=== PATIENT | male | born 1955 | race Hispanic/Latino ===

== ENCOUNTER 2016-11-18 09:39 | Emergency (ER) | payer BC ==
[2016-11-18] MEDS ORDERED: Sodium Chloride 0.9% 1,000 ML ONE ×2 (10:02→11:08)
[2016-11-18] MEDS ORDERED: Acetaminophen 500 MG TAB ONE (10:06)
[2016-11-18 10:17] LABS: #Basophils 0.1 thou/uL (0.0-0.2); #Lymphocytes 0.7 thou/uL (1.20-3.40); #Monocytes 1.2 thou/uL (0.11-0.59); #Neutrophils 6.8 thou/uL (1.40-6.50); %Basophils 1.7 % (0.0-1.0); %Lymphocytes 8.1 % (21.0-51.0); %Monocytes 13.9 % (0.0-10.0); Hematocrit 52.8 % (42.0-52.0); Mean Platelet Volume 10.5 fL (7.4-10.4); Red Blood Cell (RBC) Count 5.83 mill/uL (4.70-6.10); White Blood Cell (WBC) Count 8.9 thou/uL (4.8-10.8)
--- NOTE | 2016-11-18 10:23 | RAD ---
PA AND LATERAL CHEST: History: Fever. FINDINGS: The heart size is normal. The lungs are expanded without focal areas of consolidation, pneumothorax , or pleural effusions. There are degenerative changes of the spine. IMPRESSION: No radiographic evidence of acute cardiopulmonary process. POS: [facility]
[2016-11-18 10:26] LABS: Lactic Acid - Sepsis 1.2 mmol/L (0.5-2.2)
[2016-11-18 10:31] LABS: ALT (SGPT) 64 U/L (0-55); AST (SGOT) 53 U/L (5-34); Alkaline Phosphatase 108 U/L (40-150); Anion Gap 17 mmol/L (10-20); BUN (Urea Nitrogen) 11 mg/dL (8.4-25.7); Bilirubin, Total 0.8 mg/dL (0.2-1.2); CK (CPK) 55 U/L (30-200); Calc. Creatinine Clearance 0 mL/min (70-130); Calcium 9.1 mg/dL (7.8-10.44); Carbon Dioxide 19 mmol/L (22-29); Chloride 105 mmol/L (98-107); Estimated GFR-MDRD 73; Globulin 3.5 g/dL (2.4-3.5); Protein, Total 7.8 g/dL (6.0-8.3)
--- NOTE | 2016-11-18 11:59 | ERRECORD ---
[facility] EMERGENCY RECORD HPI FLU-LIKE SYNDROME (10:05 JL) CHIEF COMPLAINT: Patient presents for evaluation of body aches, Patient presents for evaluation of fever, subjective, Patient presents for evaluation of upper respiratory infection, Patient presents for evaluation of Pt with 1 day of cough, congestion, and fever. Noted to have tahycardia in Dr. Fagan's office and sent for eval. Negative flu and urine in PCP's office. Took ibuprofen and paracetamol yesterday but none today. HISTORIAN: History provided by patient. LOCATION: Symptoms are generalized. QUALITY: Pain is dull in nature, described as aching. TIME COURSE: Gradual onset of symptoms, Symptoms are worsening, are constant. ASSOCIATED WITH: No associated abdominal pain, No associated chest pain, Associated with cough, productive, No associated diarrhea, No associated flank pain, Associated with headache, intermittent, No associated vomiting, No associated shortness of breath, No associated urinary tract infection signs or symptoms. EXACERBATED BY: Patient's condition exacerbated by nothing. RELIEVED BY: Patient's condition relieved by over the counter medications. ROS (10:06 JL) CONSTITUTIONAL: Historian reports chills, reports fever. EYES: Historian denies eye pain, denies eye redness, denies eye discharge. ENT: Historian reports rhinorrhea, denies sore throat. CARDIOVASCULAR: Historian denies chest pain, denies dyspnea on exertion. RESPIRATORY: Historian reports cough, denies shortness of breath, reports sputum. clear. GI: Historian denies abdominal pain, denies diarrhea, denies nausea, denies vomiting. GENITOURINARY MALE: Historian denies dysuria, denies hematuria. MUSCULOSKELETAL: Historian reports arthralgias, reports myalgias. SKIN: Historian denies rash, denies skin changes. NEUROLOGIC: Historian reports headache. PAST MEDICAL HISTORY MEDICAL HISTORY: Past medical history includes history of diabetes, Type II, Past medical history includes history of hypertension, which has been treated, Patient is compliant. (09:51 [facility]) MALE SURGICAL HISTORY: COLONOSCOPY. (10:15 [facility]) PSYCHIATRIC HISTORY: No previous psychiatric history. (10:11 [facility]) SOCIAL HISTORY: Patient drinks socially, Patient denies drug use, Patient has no smoking history. (10:15 [facility]) &a-1R&a+25V*p+0X*[id number]*c202B*c15G*c2P*p-0X&a-25V&a+1R Name: Chester Dempsey : 1955 M61 MedRec: [id number] AcctNum: [id number] Prepared: Shahnaz Nov 18, 2016 12:22 by Interface Page 1 of 4 pMD [facility] EMERGENCY RECORD NOTES: Nursing records reviewed, Agree with nursing records. (10:08 [facility]) KNOWN ALLERGIES No Known Drug Allergies CURRENT MEDICATIONS enalapril maleate: TABLET : Strength - 10 mg : ORAL Patient Dose: 10 mg Oral once a day. (09:49 [facility]) aspirin: TABLET : Strength - 81 mg : ORAL Patient Dose: 81 mg Oral once a day. (:49 [facility]) Paracetamol: TABLET : Strength - 500 mg : ORAL Patient Dose: 2 tab(s) Oral every 4 hours prn. (:49 [facility]) Vitamin D3: CAPSULE : Strength - 1,000 unit : ORAL Patient Dose: ONE cap(s) Oral once a day. (10:17 [facility]) metFORMIN: TABLET : Strength - 850 mg : ORAL Patient Dose: 850 mg Oral once a day. (10:17 [facility]) VITAL SIGNS VITAL SIGNS: BP: 149/99 (Lying), Pulse: 137 (Regular), Resp: 16 (Non-Labored), Temp: 100.6 (Oral), Pain: 0, Time: 11/18/2016 09:41. (09:41 [facility]) O2 sat: 97 on Room Air, Time: 11/18/2016 09:41. (09:41 [facility]) BP: 128/87 (Lying), Pulse: 121 (Regular), Resp: 16 (Non-Labored), Pain: 0, O2 sat: 97 on Room Air, Time: 11/18/2016 10:18. (10:18 [facility]) BP: 115/83 (Lying), Pulse: 112 (Regular), Resp: 16 (Non-Labored), Pain: 0, O2 sat: 97 on Room Air, Time: 11/18/2016 10:35. (10:35 [facility]) BP: 107/78 (Lying), Pulse: 107 (Regular), Resp: 20 (Non-Labored), Pain: 0, O2 sat: 96 on Room Air, Time: 11/18/2016 11:11. (11:11 [facility]) BP: 106/72 (Lying), Pulse: 104 (Regular), Resp: 18 (Non-Labored), Pain: 0, O2 sat: 97 on Room Air, Time: 11/18/2016 11:33. (11:33 [facility]) BP: 117/80, Pulse: 103, Resp: 18, Temp: 98.8, Pain: 0, O2 sat: 97 on RA, Time: 11/18/2016 12:08. (12:08 [facility]) PHYSICAL EXAM (10:07 [facility]) CONSTITUTIONAL: Vital signs reviewed, Patient appears non toxic, Patient alert and oriented to person, place and time. EYES: Eye exam included findings of eyelids normal to inspection, Pupils equally round and reactive to light, Conjunctiva normal. ENT: Pharynx exam normal, Uvula exam normal, Tonsil exam normal, Mouth exam included findings of, mucous membranes dry. NECK: Neck exam included findings of normal range of motion, Trachea midline, no cervical adenopathy. RESPIRATORY CHEST: Respiratory exam included findings of no respiratory distress, Breath sounds clear, No wheezing, No rales, No &a-1R&a+25V*p+0X*[id number]*c202B*c15G*c2P*p-0X&a-25V&a+1R Name: Chester Dempsey : 1955 M61 MedRec: [id number] AcctNum: [id number] Prepared: [facility] Nov 18, 2016 12:22 by Interface Page 2 of 4 pMD [facility] EMERGENCY RECORD rhonchi, Chest exam included findings of chest movement symmetrical. CARDIOVASCULAR: Cardiovascular exam included findings of, rate tachycardic, rhythm regular, Heart sounds normal. ABDOMEN MALE: Abdominal exam included findings of abdomen nontender, Bowel sounds normal. BACK: Back exam included findings of normal inspection, range of motion normal. UPPER EXTREMITY: Upper extremity exam included findings of inspection normal, Radial pulse normal, no cyanosis, no clubbing, no edema. LOWER EXTREMITY: Lower extremity exam included findings of inspection normal, no edema, no calf tenderness. NEURO: Preble coma scale 15, Neuro exam findings include patient oriented to person, place and time, Speech normal. SKIN: Skin exam included findings of skin warm, dry, and normal in color, no rash. PSYCHIATRIC: Normal affect. MEDICATION ADMINISTRATION SUMMARY Drug Name: *sodium chloride 0.9 % intravenous, Dose Ordered: 1 L, Route: IV Fluid Infusion, Status: Given, Time: 11:11/18/2016, Drug Name: acetaminophen oral, Dose Ordered: 1000 mg, Route: Oral, Status: Given, Time: 10:11/18/2016, Drug Name: *sodium chloride 0.9 % intravenous, Dose Ordered: 1 L, Route: IV Fluid Infusion, Status: Given, Time: 10:11/18/2016, *Additional information available in notes, Detailed record available in Medication Service section. DOCTOR NOTES (11:01 JLOY) RE-EVALUATION: The patient's condition has improved, HR improved but still mild tachycardia. Mucus membranes still dry appearing. Will give another liter of fluid. PROBLEM LIST No recorded problems DIAGNOSIS (11:54 JLOY) FINAL: PRIMARY: DEHYDRATION, ADDITIONAL: Acute URI. PRESCRIPTION No recorded prescriptions DISPOSITION PATIENT: Disposition Type: Discharge, Disposition: *Discharge Home. (11:54 JL) Patient left the department. (12:16 [facility]) Lou: &a-1R&a+25V*p+0X*[id number]*c202B*c15G*c2P*p-0X&a-25V&a+1R Name: Chester Dempsey : 1955 M61 MedRec: [id number] AcctNum: [id number] Prepared: TueNov 18, 2016 12:22 by Interface Page 3 of 4 pMD [facility] EMERGENCY RECORD JLOY=MD Delgado, John AL=CARLIE Gupta, Karen &a-1R&a+25V*p+0X*f9375S*c202B*c15G*c2P*p-0X&a-25V&a+1R Name: Chester Dempsey : 1955 M61 MedRec: [id number] AcctNum: [id number] Prepared: TueNov 18, 2016 12:22 by Interface Page 4 of 4 pMD [facility]D
--- NOTE | 2016-11-18 12:02 | PICIS ---
[facility] EMERGENCY RECORD TRIAGE (TueNov 18, 2016 09:46 LHAL) PATIENT: NAME: Chester Dempsey, AGE: 61, GENDER: male, : Tue1955, TIME OF GREET: TueNov 18, 2016 09:39, PREFERRED LANGUAGE: Cuban, RACE: or , ETHNICITY: or , ECODE BILLING MAP: [facility], SSN: [id number], Zip Code: [address], KG WEIGHT: 72.57, PHONE: , , , PERSON ID: [id number], PCP: DOMINIC. (TueNov 18, 2016 09:46 LHAL) COMPLAINT: FEVER. (TueNov 18, 2016 09:46 LHAL) ADMISSION: URGENCY: 4 Non Urgent, ADMISSION SOURCE: Other, TRANSPORT: CAR, BED: ER -03. (TueNov 18, 2016 09:46 LHAL) ASSESSMENT: Assessment: COUGH, CONGESTION, FEVER X FEW DAYS, SENT FROM PCP OFFICE FOR TACHYCARDIA, Symptoms began 3 DAYS AGO. (10:11 LHAL) PAIN: No complaint of pain. (09:46 LHAL) SIRS SCORING: Heart Rate 110-139 (2), Temp range 96.8-101.1 (0), respiratory rate 12-24 (0), Mental Status altered: no (0), Yes, Infection or Suspected Infection. (09:46 LHAL) IMMUNIZATIONS: Flu vaccine not up to date, Tetanus not up to date, Pneumococcal vaccine up to date. (10:20 LHAL) TRIAGE SCREENING: Patient denies suicidal ideation, Patient denies presence of domestic violence. (09:46 LHAL) PROVIDERS: TRIAGE NURSE: Karen Gupta RN, ATTENDING PHYSICIAN: John Natarajan MD. (TueNov 18, 2016 09:46 LHAL) VITAL SIGNS: BP 149/99, (Lying), Pulse 137, (Regular), Resp 16, (Non-Labored), Temp 100.6, (Oral), Pain 0, Time 11/18/2016 09:41. (09:41 LHAL) PREVIOUS VISIT ALLERGIES: No Known Drug Allergies. (TueNov 18, 2016 09:46 LHAL) KNOWN ALLERGIES No Known Drug Allergies CURRENT MEDICATIONS enalapril maleate: TABLET : Strength - 10 mg : ORAL Patient Dose: 10 mg Oral once a day. (09:49 LHAL) aspirin: TABLET : Strength - 81 mg : ORAL Patient Dose: 81 mg Oral once a day. (09:49 LHAL) Paracetamol: TABLET : Strength - 500 mg : ORAL Patient Dose: 2 tab(s) Oral every 4 hours prn. (09:49 LHAL) Vitamin D3: CAPSULE : Strength - 1,000 unit : ORAL Patient Dose: ONE cap(s) Oral once a day. (10:17 LHAL) metFORMIN: TABLET : Strength - 850 mg : ORAL Patient Dose: 850 mg Oral once a day. (10:17 LHAL) &a-1R&a+25V*p+0X*m3996Q*c202B*c15G*c2P*p-0X&a-25V&a+1R Name: Chester Dempsey : 1955 M61 MedRec: [id number] AcctNum: [id number] Prepared: TueNov 18, 2016 12:28 by Interface Page 1 of 9 pMD [facility] EMERGENCY RECORD VITAL SIGNS VITAL SIGNS: BP: 149/99 (Lying), Pulse: 137 (Regular), Resp: 16 (Non-Labored), Temp: 100.6 (Oral), Pain: 0, Time: 11/18/2016 09:41. (09:41 LHAL) O2 sat: 97 on Room Air, Time: 11/18/2016 09:41. (09:41 LHAL) BP: 128/87 (Lying), Pulse: 121 (Regular), Resp: 16 (Non-Labored), Pain: 0, O2 sat: 97 on Room Air, Time: 11/18/2016 10:18. (10:18 LHAL) BP: 115/83 (Lying), Pulse: 112 (Regular), Resp: 16 (Non-Labored), Pain: 0, O2 sat: 97 on Room Air, Time: 11/18/2016 10:35. (10:35 LHAL) BP: 107/78 (Lying), Pulse: 107 (Regular), Resp: 20 (Non-Labored), Pain: 0, O2 sat: 96 on Room Air, Time: 11/18/2016 11:11. (11:11 LHAL) BP: 106/72 (Lying), Pulse: 104 (Regular), Resp: 18 (Non-Labored), Pain: 0, O2 sat: 97 on Room Air, Time: 11/18/2016 11:33. (11:33 LHAL) BP: 117/80, Pulse: 103, Resp: 18, Temp: 98.8, Pain: 0, O2 sat: 97 on RA, Time: 11/18/2016 12:08. (12:08 LHAL) NURSING ASSESSMENT: CARDIOVASCULAR (09:46 [facility]) CARDIOVASCULAR: Cardiovascular assessment findings include heart rate normal, Heart rhythm normal sinus, Heart sounds normal, Left radial pulse +3(easily palpated, considered normal), Right radial pulse +3(easily palpated, considered normal), Left dorsalis pedis pulse +3(easily palpated, considered normal), Right dorsalis pedis pulse +3(easily palpated, considered normal). NURSING ASSESSMENT: FOCUSED (09:46 [facility]) CONSTITUTIONAL: Patient arrives ambulatory, Gait steady, History obtained from patient, Patient appears comfortable, Patient cooperative, Patient alert, Oriented to person, place and time, Skin warm, Skin dry, Skin normal in color, Mucous membranes pink, Mucous membranes moist, Patient is well-groomed, Patient complains of COUGH, CONGESTION, FEVER X 3 DAYS, SENT HERE FOR TACHYCARDIA FROM PCP OFFICE. PAIN: intermittent, Patient rates pain as 0 out of 10, HAD BODY ACHES THIS AM, NO PAIN NOW TOOK TYLENOL LAST PM, NOTHING TODAY. EYES: Focused eye assessment finding include pupils equally round and reactive to light, Left pupil 3 mm in size, Right pupil 3 mm in size. NEURO: Focused neuro assessment findings include patient alert, cooperative, No facial droop noted, Speech coherent, no weakness, no numbness, No loss of consciousness, Notes: C/O GENERALIZED MALAISE, FATIGUE. GCS: GCS Total: 15. RESPIRATORY: Focused respiratory assessment findings include breath sounds clear, to the left upper lobe, to the right upper lobe, to bilateral upper lobes, to the right middle lobe, to the left lower lobe, to the right lower lobe, to bilateral lower lobes. ABDOMEN: Focused abdominal assessment findings include abdomen soft, no diarrhea, no complaint of nausea, no vomiting, Bowel sounds present, Notes: STATES HASN'T BEEN DRINKING FLUIDS, DRY &a-1R&a+25V*p+0X*t5309G*c202B*c15G*c2P*p-0X&a-25V&a+1R Name: Chester Dempsey : 1955 M61 MedRec: [id number] AcctNum: [id number] Prepared: Shahnaz Nov 18, 2016 12:28 by Interface Page 2 of 9 pMD [facility] EMERGENCY RECORD MMM. GENITOURINARY: Focused genitourinary assessment not applicable. MUSCULOSKELETAL: Focused musculoskeletal assessment findings include normal range of motion. LACERATION: Focused laceration assessment not applicable. SAFETY: Side rails up, Cart/Stretcher in lowest position, Call light within reach, Hospital ID band on. NURSING PROCEDURE: SUPERVISOR [employer]DNANCE TRUCK INSTALLATION (10:15 LHAL) PATIENT IDENTIFIER: Patient actively involved in identification process, Patient's identity verified by patient stating name, Patient's identity verified by patient stating date, Patient's identity verified by hospital ID bracelet. SUPERVISOR [employer]DNANCE TRUCK INSTALLATION: Cardiac monitoring indicated for TACHYCARDIA, Patient placed on registered nurse cardiac telemetry, Heart rate: 121, showing sinus tachycardia, without ectopy, with no ST segment changes, Strip posted on chart, Patient placed on non-invasive blood pressure monitor, with disposable blood pressure cuff applied, Patient placed on continuous pulse oximetry, Adult/pediatric oxisensor applied, Oxygen saturation 97%. FOLLOW-UP: After procedure, alarms set and on, After procedure, patient tolerating monitoring. SAFETY: Side rails up, Cart/Stretcher in lowest position, Call light within reach, Hospital ID band on. NURSING PROCEDURE: DISCHARGE NOTE (12:08 LHAL) DISCHARGE: Patient discharged to home, ambulating without assistance, driving self, unaccompanied, Summary of Care printed/ provided, Patient requested and was provided an electronic copy of Discharge Instructions, Transition record given to patient, Discharge instructions given to patient, Simple or moderate discharge teaching performed, by Chris GUPTA RN, Medication reconciliation form given, and reviewed with patient, Above person(s) verbalized understanding of discharge instructions and follow-up care, Notes: DC HOME STABLE, VSS, SKIN PINK W/D, NORMAL EVEN RESP, AMBULATES STEADY GAIT, NO COMPLAINTS, NO SYMPTOMS. BELONGINGS: Belongings and valuables with patient upon arrival to the Emergency Department include:. VITAL SIGNS: BP: 117, / 80, Pulse: 103, Resp: 18, Temp: 98.8, Pain: 0, O2 sat: 97, on: RA. NURSING PROCEDURE: IV PATIENT IDENITIFIER: Patient actively involved in identification process, Patient's identity verified by patient stating name, Patient's identity verified by patient stating date, Patient's identity verified by hospital ID bracelet. (10:00 LHAL) IV SITE 1: IV therapy indicated for hydration, IV established, to the left antecubital, using a 20 gauge catheter, in one attempt, IV site prepped with CHLOROPREP, Saline lock established, Flushed with normal saline (mls): 10 CC, Labs drawn at time of placement, labeled &a-1R&a+25V*p+0X*i2069T*c202B*c15G*c2P*p-0X&a-25V&a+1R Name: DempseyChester eddy Cecy : 1955 M61 MedRec: [id number] AcctNum: [id number] Prepared: TueNov 18, 2016 12:28 by Interface Page 3 of 9 D [facility] EMERGENCY RECORD in the presence of the patient and sent to lab, Blood cultures drawn at time of placement, labeled in the presence of the patient and sent to lab, Notes: 1ST SET BC DONE THRU IV SITE. (10:00 LHAL) FOLLOW-UP SITE 1: IV discontinued, due to patient being discharged, catheter intact. (12:08 LHAL) SAFETY: Side rails up, Cart/Stretcher in lowest position, Call light within reach, Hospital ID band on. (10:00 LHAL) NURSING PROCEDURE: LAB DRAW (10:00 LHAL) PATIENT IDENTIFIER: Patient actively involved in identification process, Patient's identity verified by patient stating name, Patient's identity verified by patient stating date, Patient's identity verified by hospital ID bracelet. LAB DRAW: Lab draw indicated for obtaining specimens for evaluation, by venipuncture, Notes: SECOND BLOOD CULTURE DRAWN, RIGHT WRIST. FOLLOW-UP: After procedure, dressing applied to site, After procedure, no swelling at site, After procedure, no active bleeding from site. SAFETY: Side rails up, Cart/Stretcher in lowest position, Call light within reach, Hospital ID band on. NURSING PROCEDURE: NURSE NOTES NURSES NOTES: Patient examined by physician. (09:52 LHAL) Patient in no apparent distress, Patient resting quietly, Patient is awaiting results. (10:28 LHAL) Patient is improving, Patient in no apparent distress. (11:21 LHAL) NURSING PROCEDURE: TRANSPORT TO TESTS PATIENT IDENTIFIER: Patient actively involved in identification process, Patient's identity verified by patient stating name, Patient's identity verified by patient stating date, Patient's identity verified by hospital ID bracelet. (10:10 LHAL) TRANSPORT TO TESTS: Transport indicated to facilitate diagnosis, Patient transported to x-ray, ambulatory, Accompanied by x-ray biofuels processing technician. (10:10 LHAL) Patient transported to x-ray, via wheelchair, Accompanied by x-ray biofuels processing technician, Patient arrived in location at 10:02, Patient departed location at 10:12. (10:07 [facility]) FOLLOW-UP: After procedure, patient returned to emergency department. (10:15 LHAL) ORDER DETAILS Order Name: SUPERVISOR [employer]NCE TRUCK INSTALLATION ED, Status: Done, Time: 10:08 11/18/2016, User: JUAN, - Ordered for: MD Natarajan Joshua, - Entered by: MD Natarajan Joshua - [facility] Nov 18, 2016 10:02, - Quantity: 1, Order Name: CBC with Differential, Status: Active, Time: 10:02 &a-1R&a+25V*p+0X*j2994F*c202B*c15G*c2P*p-0X&a-25V&a+1R Name: Chester Dempsey : 1955 M61 MedRec: [id number] AcctNum: [id number] Prepared: TueNov 18, 2016 12:28 by Interface Page 4 of 9 [facility] EMERGENCY RECORD 11/18/2016, User: SARAH, - Ordered for: MD Natarajan Joshua, - Entered by: MD Natarajan Joshua - [facility] Nov 18, 2016 10:02, - Quantity: 1, Order Name: CK (CPK), Status: Active, Time: 10:02 11/18/2016, User: MILANA, - Ordered for: MD Natarajan Joshua, - Entered by: MD Natarajan Joshua - [facility] Nov 18, 2016 10:02, - Quantity: 1, Order Name: Comprehensive Metabolic Panel, Status: Active, Time: 10:02 11/18/2016, User: MILANA, - Ordered for: MD Natarajan Joshua, - Entered by: MD Natarajan Joshua - [facility] Nov 18, 2016 10:02, - Quantity: 1, Order Name: Culture, Blood, Status: Active, Time: 10:02 11/18/2016, User: MILANA, - Ordered for: MD Natarajan Joshua, - Entered by: MD Natarajan Joshua - [facility] Nov 18, 2016 10:02, - Quantity: 1, Order Name: EKG 12 Lead in Emergency Room, Status: Active, Time: 09:51 11/18/2016, User: JUAN, - Ordered for: MD Natarajan Joshua, - Entered by: CARLIE Gupta Akren TueNov 18, 2016 09:51, - Quantity: 1, Order Name: Lactic Acid with repeat, Status: Active, Time: 10:02 11/18/2016, User: MILANA, - Ordered for: MD Natarajan Joshua, - Entered by: MD Natarajan Joshua [facility] Nov 18, 2016 10:02, - Quantity: 1, Order Name: SALINE LOCK, Status: Done, Time: 10:08 11/18/2016, User: JUAN, - Ordered for: MD Natarajan Joshua, - Entered by: MD Natarajan Joshua [facility] Nov 18, 2016 10:02, - Quantity: 1, Order Name: XR Chest 1 View Portable, Status: Canceled, Time: 10:15 11/18/2016, User: System, - Ordered for: MD Natarajan Joshua, - Entered by: MD Natarajan Joshua [facility] Nov 18, 2016 10:02, - Quantity: 1. MEDICATION ADMINISTRATION SUMMARY Drug Name: *sodium chloride 0.9 % intravenous, Dose Ordered: 1 L, Route: IV Fluid Infusion, Status: Given, Time: 11:03 11/18/2016, Drug Name: acetaminophen oral, Dose Ordered: 1000 mg, Route: Oral, Status: Given, Time: 10:09 11/18/2016, Drug Name: *sodium chloride 0.9 % intravenous, Dose Ordered: 1 L, Route: IV Fluid Infusion, Status: Given, Time: 10:03 11/18/2016, *Additional information available in notes, Detailed record available in Medication Service section. &a-1R&a+25V*p+0X*e6687X*c202B*c15G*c2P*p-0X&a-25V&a+1R Name: Chester Dempsey : 1955 M61 MedRec: [id number] AcctNum: [id number] Prepared: Shahnaz Nov 18, 2016 12:28 by Interface Page 5 of 9 D [facility] EMERGENCY RECORD MEDICATION SERVICE acetaminophen oral: Order: acetaminophen oral (acetaminophen) - Dose: 1000 mg : Oral Ordered by: John Natarajan MD Entered by: John Natarajan MD [facility] Nov 18, 2016 10:04 , Acknowledged by: Leonora Mix RN [facility] Nov 18, 2016 10:05 Documented as given by: Leonora Mix RN [facility] Nov 18, 2016 10:09 Patient, Medication, Dose, Route and Time verified prior to administration. Site: Medication administered P.O., Correct patient, time, route, dose and medication confirmed prior to administration, Patient advised of actions and side-effects prior to administration, Allergies confirmed and medications reviewed prior to administration. : Follow Up : No signs or symptoms of allergic reaction noted, Decreased symptoms, Decreased temperature. (12:08 LHAL) sodium chloride 0.9 % intravenous: Order: sodium chloride 0.9 % intravenous (0.9 % sodium chloride) - Dose: 1 L : IV Fluid Infusion Notes: (Bolus) Ordered by: John Natarajan MD Entered by: John Natarajan MD [facility] Nov 18, 2016 10:02 Documented as given by: Karen Gupta RN [facility] Nov 18, 2016 10:03 Patient, Medication, Dose, Route and Time verified prior to administration. Amount given: 1000 CC, IV SITE #1 IV fluids established for hydration, IV SITE #1 into left antecubital, IV SITE #1 1st bag hung, amount 1 Liter hung, IV SITE #1 bolus of 1000 ml established, via primary tubing, Catheter placement confirmed via flush prior to administration, IV site without signs or symptoms of infiltration during medication administration, No swelling during administration, No drainage during administration, IV flushed after administration, Correct patient, time, route, dose and medication confirmed prior to administration, Patient advised of actions and side-effects prior to administration, Allergies confirmed and medications reviewed prior to administration, Administered by Chris GUPTA RN, Patient in position of comfort, Side rails up, Cart in lowest position. : Follow Up : No signs or symptoms of allergic reaction noted, Decreased symptoms, Decreased heart rate, _IV SITE #1:_, IV fluid infusion discontinued, on Shahnaz Nov 18, 2016 11:00, ., Total amount infused: 1000 CC, IV Line flushed after administration. (11:00 LHAL) sodium chloride 0.9 % intravenous: Order: sodium chloride 0.9 % intravenous (0.9 % sodium chloride) - Dose: 1 L : IV Fluid Infusion Notes: (Bolus) Ordered by: John Natarajan MD Entered by: John Natarajan MD [facility] Nov 18, 2016 11:01 Documented as given by: Karen Gupta RN [facility] Nov 18, 2016 11:03 &a-1R&a+25V*p+0X*x0223K*c202B*c15G*c2P*p-0X&a-25V&a+1R Name: Chester Dempsey : 1955 M61 MedRec: [id number] AcctNum: [id number] Prepared: TueNov 18, 2016 12:28 by Interface Page 6 of 9 pMD [facility] EMERGENCY RECORD Patient, Medication, Dose, Route and Time verified prior to administration. Amount given: 1000 CC, IV SITE #1 IV fluids established for hydration, IV SITE #1 into left antecubital, IV SITE #1 2nd bag hung, amount 1 Liter hung, IV SITE #1 bolus of 1000 ml established, via primary tubing, Catheter placement confirmed via flush prior to administration, IV site without signs or symptoms of infiltration during medication administration, No swelling during administration, No drainage during administration, IV flushed after administration, Correct patient, time, route, dose and medication confirmed prior to administration, Patient advised of actions and side-effects prior to administration, Allergies confirmed and medications reviewed prior to administration, Administered by Chris GUPTA RN, Patient in position of comfort, Side rails up, Cart in lowest position. : Follow Up : No signs or symptoms of allergic reaction noted, Decreased symptoms, Decreased heart rate, _IV SITE #1:_, IV fluid infusion discontinued, on TueNov 18, 2016 12:00, ., Total amount infused: 1000 CC, IV Discontinued with catheter intact. (12:00 [facility]) HPI FLU-LIKE SYNDROME (10:05 [facility]) CHIEF COMPLAINT: Patient presents for evaluation of body aches, Patient presents for evaluation of fever, subjective, Patient presents for evaluation of upper respiratory infection, Patient presents for evaluation of Pt with 1 day of cough, congestion, and fever. Noted to have tahycardia in Dr. Fagan's office and sent for eval. Negative flu and urine in PCP's office. Took ibuprofen and paracetamol yesterday but none today. HISTORIAN: History provided by patient. LOCATION: Symptoms are generalized. QUALITY: Pain is dull in nature, described as aching. TIME COURSE: Gradual onset of symptoms, Symptoms are worsening, are constant. ASSOCIATED WITH: No associated abdominal pain, No associated chest pain, Associated with cough, productive, No associated diarrhea, No associated flank pain, Associated with headache, intermittent, No associated vomiting, No associated shortness of breath, No associated urinary tract infection signs or symptoms. EXACERBATED BY: Patient's condition exacerbated by nothing. RELIEVED BY: Patient's condition relieved by over the counter medications. ROS (10:06 [facility]) CONSTITUTIONAL: Historian reports chills, reports fever. EYES: Historian denies eye pain, denies eye redness, denies eye discharge. ENT: Historian reports rhinorrhea, denies sore throat. CARDIOVASCULAR: Historian denies chest pain, denies dyspnea on exertion. &a-1R&a+25V*p+0X*h0915I*c202B*c15G*c2P*p-0X&a-25V&a+1R Name: Chester Dempsey : 1955 M61 MedRec: [id number] AcctNum: [id number] Prepared: TueNov 18, 2016 12:28 by Interface Page 7 of 9 pMD [facility] EMERGENCY RECORD RESPIRATORY: Historian reports cough, denies shortness of breath, reports sputum. clear. GI: Historian denies abdominal pain, denies diarrhea, denies nausea, denies vomiting. GENITOURINARY MALE: Historian denies dysuria, denies hematuria. MUSCULOSKELETAL: Historian reports arthralgias, reports myalgias. SKIN: Historian denies rash, denies skin changes. NEUROLOGIC: Historian reports headache. PAST MEDICAL HISTORY MEDICAL HISTORY: Past medical history includes history of diabetes, Type II, Past medical history includes history of hypertension, which has been treated, Patient is compliant. (09:51 LHAL) MALE SURGICAL HISTORY: COLONOSCOPY. (10:15 L[facility]) PSYCHIATRIC HISTORY: No previous psychiatric history. (10:11 L[facility]) SOCIAL HISTORY: Patient drinks socially, Patient denies drug use, Patient has no smoking history. (10:15 L[facility]) NOTES: Nursing records reviewed, Agree with nursing records. (10:08 [facility]) PHYSICAL EXAM (10:07 [facility]) CONSTITUTIONAL: Vital signs reviewed, Patient appears non toxic, Patient alert and oriented to person, place and time. EYES: Eye exam included findings of eyelids normal to inspection, Pupils equally round and reactive to light, Conjunctiva normal. ENT: Pharynx exam normal, Uvula exam normal, Tonsil exam normal, Mouth exam included findings of, mucous membranes dry. NECK: Neck exam included findings of normal range of motion, Trachea midline, no cervical adenopathy. RESPIRATORY CHEST: Respiratory exam included findings of no respiratory distress, Breath sounds clear, No wheezing, No rales, No rhonchi, Chest exam included findings of chest movement symmetrical. CARDIOVASCULAR: Cardiovascular exam included findings of, rate tachycardic, rhythm regular, Heart sounds normal. ABDOMEN MALE: Abdominal exam included findings of abdomen nontender, Bowel sounds normal. BACK: Back exam included findings of normal inspection, range of motion normal. UPPER EXTREMITY: Upper extremity exam included findings of inspection normal, Radial pulse normal, no cyanosis, no clubbing, no edema. LOWER EXTREMITY: Lower extremity exam included findings of inspection normal, no edema, no calf tenderness. NEURO: [place] coma scale 15, Neuro exam findings include patient oriented to person, place and time, Speech normal. SKIN: Skin exam included findings of skin warm, dry, and normal &a-1R&a+25V*p+0X*v5848U*c202B*c15G*c2P*p-0X&a-25V&a+1R Name: Chester Dempsey : 1955 M61 MedRec: [id number] AcctNum: [id number] Prepared: TueNov 18, 2016 12:28 by Interface Page 8 of 9 pMD [facility] EMERGENCY RECORD in color, no rash. PSYCHIATRIC: Normal affect. EVENTS TRANSFER: Triage to Emergency Emergency Room -03. (TueNov 18, 2016 09:46 LHAL) Removed from Emergency Emergency Room -03. (12:16 [facility]) DOCTOR NOTES (11:01 JL) RE-EVALUATION: The patient's condition has improved, HR improved but still mild tachycardia. Mucus membranes still dry appearing. Will give another liter of fluid. PROBLEM LIST No recorded problems DIAGNOSIS (11:54 JLOY) FINAL: PRIMARY: DEHYDRATION, ADDITIONAL: Acute URI. DISPOSITION PATIENT: Disposition Type: Discharge, Disposition: *Discharge Home. (11:54 JLOY) Patient left the department. (12:16 AL) INSTRUCTION (11:55 JLOY) DISCHARGE: URI, VIRAL, NO ABX (ADULT), DEHYDRATION (8Y-ADULT). FOLLOWUP: Follow up with Primary Care Physician in 5 days. SPECIAL: If you start to feel worse with increasing fevers or dizziness or trouble breathing return to the ER or see Dr. Fagan. PRESCRIPTION No recorded prescriptions IMAGING *DISCHARGE INSTRUCTIONS RECEIPT: Image captured from scanner. (12:09 AL) *SUPPLY CHARGE SHEET: Image captured from scanner. (12:10 AL) MONITOR STRIPS: Image captured from scanner. (12:10 [facility]) Page 2 added. Image captured from scanner. (12:10 [facility]) Image captured from scanner. (12:10 AL) *EKG: Image captured from scanner. (12:11 AL) ADMIN DIGITAL SIGNATURE: MD Natarajan Joshua. (11:55 MILANA) CARLIE Gupta, Karen. (12:16 BEA) Lou: CCRI=ANAID [place] JLOY=MD Natarajan Joshua LHAL=CARLIE Gupta Linda &a-1R&a+25V*p+0X*s6579H*c202B*c15G*c2P*p-0X&a-25V&a+1R Name: Dempsey , Chester Sam : 1955 M61 MedRec: [id number] AcctNum: [id number] Prepared: TueNov 18, 2016 12:28 by Interface Page 9 of 9 pMD [facility] MEDICATION RECONCILIATION You were seen in the Emergency Department on: TueNov 18, 2016 KNOWN ALLERGIES No Known Drug Allergies MEDICATIONS GIVEN WHILE IN THE EMERGENCY DEPARTMENT sodium chloride 0.9 % intravenous (0.9 % sodium chloride) - Dose: 1 liter(s) : IV Fluid Infusion acetaminophen oral (acetaminophen) - Dose: 1000 milligram(s) : Oral sodium chloride 0.9 % intravenous (0.9 % sodium chloride) - Dose: 1 liter(s) : IV Fluid Infusion HOME MEDICATIONS CONTINUE PRESCRIBED aspirin : TABLET : Strength - 81 mg : ORAL Continue as prescribed Patient had been takin mg Oral once a day. enalapril maleate : TABLET : Strength - 10 mg : ORAL Continue as prescribed Patient had been takin mg Oral once a day. metFORMIN : TABLET : Strength - 850 mg : ORAL Continue as prescribed Patient had been takin mg Oral once a day. Paracetamol : TABLET : Strength - 500 mg : ORAL Continue as prescribed Patient had been takin tab(s) Oral every 4 hours prn. Vitamin D3 : CAPSULE : Strength - 1,000 unit : ORAL Continue as prescribed Patient had been taking: ONE cap(s) Oral once a day. &a-1R&a+25V*p+0X*[id number]*c202B*c15G*c2P*p-0X&a-25V&a+1R Name: Chester Dempsey : 1955 M61 MedRec: [id number] AcctNum: [id number] Prepared: TueNov 18, 2016 12:28 by Interface Heydi ANNA
== END 2016-11-18 12:08 | disposition home or self-care (01) ==
LOC: NAV ERS 09:39
DX: E86.0 Dehydration (principal); J06.9 Acute upper respiratory infection, unspecified; I10 Essential (primary) hypertension; E11.9 Type 2 diabetes mellitus without complications; Z79.82 Long term (current) use of aspirin; Z79.84 Long term (current) use of oral hypoglycemic drugs; Z79.899 Other long term (current) drug therapy
CPT/HCPCS: 71020; 80053; 82550; 83605; 85025; 87040; 93005; 96360; 96361; J7050

== ENCOUNTER 2020-12-21 21:48 | Emergency (ER) | payer BC ==
[2020-12-21] MEDS ORDERED: predniSONE 20 MG TAB ONE (22:27)
[2020-12-21] MEDS ORDERED: diphenhydrAMINE 25 MG CAP ONE (22:27)
== END 2020-12-21 22:30 | disposition home or self-care (01) ==
LOC: NAV ERS 21:48
DX: L50.0 Allergic urticaria (principal); E11.9 Type 2 diabetes mellitus without complications; I10 Essential (primary) hypertension; Z79.84 Long term (current) use of oral hypoglycemic drugs; Z79.899 Other long term (current) drug therapy
CPT/HCPCS: 99282; J7512; Q0163